=== PATIENT | female | born 1995 | race Caucasian/White ===

== ENCOUNTER → 2019-09-12 | Outpatient (CLI) | payer OTHER | END | disposition home or self-care (01) | LOC: LAB EV 16:20 → LAB SHORT 16:20 | DX: R07.9 Chest pain, unspecified (principal) | CPT/HCPCS: 84484 ==

== ENCOUNTER → 2020-01-22 | Outpatient (CLI) | payer OTHER | LOC: LAB SHORT 17:54 → LAB 17:54 | DX: Z36.85 Encounter for antenatal screening for Streptococcus B (principal); Z3A.35 35 weeks gestation of pregnancy | CPT/HCPCS: 87081; 87653 ==

== ENCOUNTER 2020-02-17 09:15 | Inpatient (IN) | payer OTHER ==
[~2020-02-17] VITALS: Ht 157.5 cm; Wt 58.6 kg
[2020-02-17 09:50] LABS: BASOPHILS ABSOLUTE AUTO 0.13 K/mm3 (0.00-0.23); BASOPHILS PERCENT AUTO 1 % (0-2); EOSINOPHILS ABSOLUTE AUTO 0.38 K/mm3 (0.00-0.68); EOSINOPHILS PERCENT AUTO 2 % (0-6); Hematocrit 35.8 % (33.0-51.0); Hemoglobin 11.7 g/dL (11.5-16.0); IMMATURE GRAN ABSOLUTE AUTO 0.66 K/mm3 (0.00-0.10); IMMATURE GRAN PERCENT AUTO 3 % (0-1); LYMPHOCYTES ABSOLUTE AUTO 2.29 K/mm3 (0.84-5.20); LYMPHOCYTES PERCENT AUTO 10 % (21-46); MONOCYTES ABSOLUTE AUTO 2.04 K/mm3 (0.16-1.47); MONOCYTES PERCENT AUTO 9 % (4-13); Mean Corpuscular HGB 29.8 pg (26.0-34.0); Mean Corpuscular HGB Conc 32.7 g/dL (31.5-36.5); Mean Corpuscular Volume 91 fL (80-100); Mean Platelet Volume 10.8 fL (9.1-12.4); NEUTROPHILS ABSOLUTE AUTO 16.73 K/mm3 (1.96-9.15); NEUTROPHILS PERCENT AUTO 75 % (41-73); Platelet Count 328 K/mm3 (150-400); RDW Coefficient Variation 13.3 % (11.7-14.2); RDW Standard Deviation 43.9 fL (35.1-46.3); Red Blood Cell Count 3.93 M/mm3 (3.80-5.20); White Blood Cell Count 22.23 K/mm3 (4.00-11.30)
[2020-02-17] MEDS ORDERED: BUSP5 PO (10:30)
--- NOTE | 2020-02-17 12:40 | NUR ---
LABS DRAWN OFF IV SITE PER PROTOCOL
[2020-02-17 18:22] LABS: PCO2 Cord - Arterial 67.6 mmHg (40-50); pH Cord - Arterial 7.14 (7.28-7.35)
[2020-02-17 18:23] LABS: PCO2 Cord - Venous 41.6 mmHg (40-50); PO2 Cord - Arterial < 13 mmHg (16-20); PO2 Cord - Venous 40.7 mmHg (28-32); pH Umbilical Cord - Venous 7.26 (7.26-7.35)
[2020-02-18 05:38] LABS: Hematocrit 34.3 % (33.0-51.0); Hemoglobin 11.2 g/dL (11.5-16.0); Mean Corpuscular HGB 29.6 pg (26.0-34.0); Mean Corpuscular HGB Conc 32.7 g/dL (31.5-36.5); Mean Corpuscular Volume 91 fL (80-100); Platelet Count 303 K/mm3 (150-400); RDW Coefficient Variation 13.4 % (11.7-14.2); RDW Standard Deviation 44.2 fL (35.1-46.3); Red Blood Cell Count 3.79 M/mm3 (3.80-5.20); White Blood Cell Count 29.12 K/mm3 (4.00-11.30)
--- NOTE | 2020-02-18 14:18 | NUR ---
DR MOCK CALLED AND WANTS TO WORK PATIENT IN FOR TUBAL TOMORROW. PLAN TO CANCEL DISCHARGE ORDER AND DO TUBAL. NO OTHER ORDERS RECEIVED AT THIS TIME.
--- NOTE | 2020-02-18 15:26 | NUR ---
REPORT RECEIVED FROM MILES LARA. ASSUMED CARE OF PATIENT.
--- NOTE | 2020-02-19 08:29 | NUR ---
PT WEIGHT 02/19/20 @ 0830 IS 58.6 kg
--- NOTE | 2020-02-19 08:54 | NUR ---
PT TO DAY SURGERY FOR TUBAL
--- NOTE | 2020-02-19 09:00 | NUR ---
PT TRANSPORTED TO [facility]. AGREES WITH PLANNED SURGERY. LUNG SOUNDS CLEAR.
--- NOTE | 2020-02-19 11:36 | NUR ---
REPORT FROM MOOK IN PACU @ 1120. PT ARRIVED TO FLOOR AT 1133, PAIN 11/09.
--- NOTE | 2020-02-19 12:27 | NUR ---
PT UP TO VOID. GERDA WELL.
[2020-02-19] MEDS ORDERED: PRENATAL TABLE1 EAC2 PO (13:40)
[2020-02-19] MEDS ORDERED: IBUP800 PO (13:40)
[2020-02-19] MEDS ORDERED: Percocet 5-3251 EACH PO (13:40)
--- NOTE | 2020-02-19 14:20 | NUR ---
ALL DC TEACHING DONE. CALL TO PT REPORTS FEELING FULL AND UNABLE TO VOID FULL AMOUNT. BLADDER SCAN AT [facility], [place] WITH AMOUNT, [place] FOR DC. REPORTS PROABLY RELATED TO GENERAL. PT DOING POST APPT WITH MILES MERRITT. THEN WILL DC HOME. MEDICATED WITH 2 PERCOCET.
--- NOTE | 2020-02-19 14:48 | NUR ---
PT DC'D HOME WITH AND NB.
== END 2020-02-19 14:48 | disposition home or self-care (01) | DRG 798 ==
LOC: BC 09:15 → OBS 09:15 → BC 09:28
PROVIDERS: ADMIT Obstetrics & Gynecology
PROC: 10E0XZZ Delivery of Products of Conception, External Approach (ICD-10-PCS; principal; 2020-02-17)
PROC: 0UT70ZZ Resection of Bilateral Fallopian Tubes, Open Approach (ICD-10-PCS; 2020-02-19)
DX: O42.02 Full-term premature rupture of membranes, onset of labor within 24 hours of rupture (principal); Z37.0 Single live birth; O43.113 Circumvallate placenta, third trimester; O69.1XX0 Labor and delivery complicated by cord around neck, with compression, not applicable or unspecified; O69.3XX0 Labor and delivery complicated by short cord, not applicable or unspecified; O77.0 Labor and delivery complicated by meconium in amniotic fluid; O99.344 Other mental disorders complicating childbirth; F32.9 Major depressive disorder, single episode, unspecified; Z3A.39 39 weeks gestation of pregnancy; Z30.2 Encounter for sterilization
CPT/HCPCS: 36415; 51702; 82803; 85025; 85027; 86850; 86900; 86901; 88302; A9270; J0330; J0690; J1100; J1170; J1885; J2001; J2210; J2250; J2405; J2590; J2704; J2765; J3010; J7120; U0003

== ENCOUNTER 2020-03-08 02:13 | Emergency (ER) | payer OTHER ==
[~2020-03-08] VITALS: Ht 157.5 cm; Wt 54.4 kg
[~2020-03-08 02:13] MED LIST: BUSP5 PO; IBUP800 PO; PRENATAL TABLE1 EAC2 PO; Percocet 5-3251 EACH PO
[2020-03-08] MEDS ORDERED: Ativan1 MG PO (02:43)
== END 2020-03-08 02:49 | disposition home or self-care (01) ==
LOC: ER 02:13
DX: J02.8 Acute pharyngitis due to other specified organisms (principal); B97.89 Other viral agents as the cause of diseases classified elsewhere; F41.9 Anxiety disorder, unspecified; F17.200 Nicotine dependence, unspecified, uncomplicated; Z79.899 Other long term (current) drug therapy
CPT/HCPCS: 99282

== ENCOUNTER 2021-09-03 20:39 | Emergency (ER) | payer OTHER ==
[~2021-09-03] VITALS: Ht 157.5 cm; Wt 48.1 kg
[~2021-09-03 20:39] MED LIST changes: +Ativan1 MG PO
[2021-09-03 22:26] LABS: BASOPHILS ABSOLUTE AUTO 0.03 K/mm3 (0.00-0.23); BASOPHILS PERCENT AUTO 0 % (0-2); EOSINOPHILS ABSOLUTE AUTO 0.26 K/mm3 (0.00-0.68); EOSINOPHILS PERCENT AUTO 3 % (0-6); Hematocrit 37.4 % (33.0-51.0); Hemoglobin 12.5 g/dL (11.5-16.0); IMMATURE GRAN ABSOLUTE AUTO 0.01 K/mm3 (0.00-0.10); IMMATURE GRAN PERCENT AUTO 0 % (0-1); LYMPHOCYTES ABSOLUTE AUTO 2.34 K/mm3 (0.84-5.20); LYMPHOCYTES PERCENT AUTO 24 % (21-46); MONOCYTES ABSOLUTE AUTO 0.78 K/mm3 (0.16-1.47); MONOCYTES PERCENT AUTO 8 % (4-13); Mean Corpuscular HGB 31.1 pg (26.0-34.0); Mean Corpuscular HGB Conc 33.4 g/dL (31.5-36.5); Mean Corpuscular Volume 93 fL (80-100); Mean Platelet Volume 11.2 fL (9.1-12.4); NEUTROPHILS PERCENT AUTO 65 % (41-73); Platelet Count 189 K/mm3 (150-400); RDW Coefficient Variation 12.2 % (11.7-14.2); Red Blood Cell Count 4.02 M/mm3 (3.80-5.20); White Blood Cell Count 9.72 K/mm3 (4.00-11.30)
[2021-09-03 23:03] LABS: Alanine Aminotransfer (ALT/SGP 21 U/L (12-78); Albumin, Blood 4.1 g/dL (3.4-5.0); Albumin/Globulin Ratio 1.4 (0.8-1.8); Alk Phos 39 U/L (50-136); Anion Gap 7 mmol/L (6-16); Aspartate Aminotrans (AST/SGOT 11 U/L (12-37); Bilirubin, Total 0.5 mg/dL (0.1-1.0); Blood Urea Nitrogen 15 mg/dL (8-24); Bun/Creatinine Ratio 25.5 (12.0-20.0); CO2, Blood 25 mmol/L (21-32); Calcium, Blood 8.8 mg/dL (8.5-10.1); Chloride, Blood 109 mmol/L (98-108); Creatinine, Blood 0.59 mg/dL (0.40-1.00); Globulin, Blood 2.9 g/dL (2.2-4.0); Glomerular Filtration Rate >60 (60-); Glucose, Blood 88 mg/dL (70-99); Potassium, Blood 3.8 mmol/L (3.5-5.5); Sodium, Blood 141 mmol/L (136-145)
== END 2021-09-04 00:38 | disposition left against medical advice (07) ==
LOC: ER 20:39
PROVIDERS: Student in an Organized Health Care Education/Training Program
DX: R07.9 Chest pain, unspecified (principal); Z53.21 Procedure and treatment not carried out due to patient leaving prior to being seen by health care provider
CPT/HCPCS: 36415; 71045; 80053; 83690; 85025; 93005; 93010; 99284-25

== ENCOUNTER 2022-10-11 01:58 | Emergency (ER) | payer OTHER ==
[~2022-10-11] VITALS: Ht 157.5 cm; Wt 52.6 kg
[2022-10-11 02:23] VITALS: BP 103/70
== END 2022-10-11 05:00 | disposition home or self-care (01) ==
LOC: ER 01:58
DX: B34.9 Viral infection, unspecified (principal); F17.210 Nicotine dependence, cigarettes, uncomplicated
CPT/HCPCS: 99283

== ENCOUNTER 2022-12-15 21:19 | Emergency (ER) | payer OTHER ==
[~2022-12-15] VITALS: Ht 157.5 cm; Wt 48.1 kg
[2022-12-15 21:28] VITALS: BP 114/70
[2022-12-15 22:46] LABS: Source, Urine Clean Catch
[2022-12-15 22:55] LABS: BASOPHILS ABSOLUTE AUTO 0.02 K/mm3 (0.00-0.23); BASOPHILS PERCENT AUTO 0 % (0-2); EOSINOPHILS ABSOLUTE AUTO 0.04 K/mm3 (0.00-0.68); EOSINOPHILS PERCENT AUTO 1 % (0-6); Hematocrit 35.9 % (33.0-51.0); Hemoglobin 12.4 g/dL (11.5-16.0); IMMATURE GRAN ABSOLUTE AUTO 0.02 K/mm3 (0.00-0.10); IMMATURE GRAN PERCENT AUTO 0 % (0-1); LYMPHOCYTES ABSOLUTE AUTO 0.34 K/mm3 (0.84-5.20); LYMPHOCYTES PERCENT AUTO 8 % (21-46); MONOCYTES ABSOLUTE AUTO 0.54 K/mm3 (0.16-1.47); MONOCYTES PERCENT AUTO 12 % (4-13); Mean Corpuscular HGB 31.7 pg (26.0-34.0); Mean Corpuscular HGB Conc 34.5 g/dL (31.5-36.5); Mean Corpuscular Volume 92 fL (80-100); Mean Platelet Volume 11.5 fL (9.1-12.4); NEUTROPHILS ABSOLUTE AUTO 3.55 K/mm3 (1.96-9.15); NEUTROPHILS PERCENT AUTO 79 % (41-73); Platelet Count 112 K/mm3 (150-400); RDW Coefficient Variation 12.1 % (11.7-14.2); RDW Standard Deviation 40.8 fL (35.1-46.3); Red Blood Cell Count 3.91 M/mm3 (3.80-5.20); White Blood Cell Count 4.51 K/mm3 (4.00-11.30)
[2022-12-15 23:12] LABS: Albumin, Blood 3.8 g/dL (3.4-5.0); Albumin/Globulin Ratio 1.3 (0.8-1.8); Bilirubin, Total 0.4 mg/dL (0.1-1.0); Bun/Creatinine Ratio 13.1 (12.0-20.0); Calcium, Blood 8.3 mg/dL (8.5-10.1); Creatinine, Blood 0.69 mg/dL (0.40-1.00); Globulin, Blood 2.9 g/dL (2.2-4.0); Potassium, Blood 3.7 mmol/L (3.5-5.5); Total Protein, Blood 6.7 g/dL (6.4-8.2)
[2022-12-15 23:33] LABS: Appearance, Urine Clear (Clear); Bilirubin, Urine Neg (Neg); Blood, Urine Neg (Neg); Color, Urine Yellow (P-Yellow); Glucose Qualitative, Urine Neg (Neg); Ketones, Urine 4+ (Neg); Leukocyte Esterase, Urine 1+ (Neg); Nitrite, Urine Neg (Neg); Protein, Urine 1+ (Neg); Urobilinogen, Urine 1+ (Normal)
[2022-12-16] LABS: Bacteria Few /hpf; Red Blood Cells, Urine 0-2 /hpf (0-2); Squamous Epithelial Cells Mod /hpf (Few); White Blood Cells, Urine 0-2 /hpf (0-5)
[2022-12-16] MEDS ORDERED: ONDA4 PO (00:17)
[2022-12-16] MEDS ORDERED: LIDOCAINE1 EACH TOP (00:17)
[2022-12-16] MEDS ORDERED: Robaxin750 MG PO (00:17)
== END 2022-12-16 00:27 | disposition home or self-care (01) ==
LOC: ER 21:19
PROVIDERS: Emergency Medicine; Student in an Organized Health Care Education/Training Program
DX: M54.50 Low back pain, unspecified (principal); F17.210 Nicotine dependence, cigarettes, uncomplicated
CPT/HCPCS: 74177; 80053; 81001; 84703; 85025; 87086; 96374-59; 96375; 99284-25; A9270; J1885; J2405; J7030; Q9967

== ENCOUNTER → 2023-05-21 | Outpatient (CLI) | payer OTHER ==
[~2023-05-21] MED LIST changes: +LIDOCAINE1 EACH TOP; +ONDA4 PO; +Robaxin750 MG PO
[2023-05-24 21:38] LABS: APTIMA MEDIA TYPE Unisex Swab; C. TRACHOMATIS BY TMA Negative (Negative); N. GONORRHOEAE BY TMA Negative (Negative); SPECIMEN SOURCE CERVIX
== END ==
LOC: LAB SHORT 15:59 → LAB 15:59
PROVIDERS: Obstetrics & Gynecology
DX: Z01.419 Encounter for gynecological examination (general) (routine) without abnormal findings (principal); Z11.3 Encounter for screening for infections with a predominantly sexual mode of transmission
CPT/HCPCS: 87491; 87591

== ENCOUNTER → 2023-06-22 | Outpatient (CLI) | payer OTHER | END | disposition home or self-care (01) | LOC: LAB SHORT 13:37 → LAB 13:37 | DX: D06.0 Carcinoma in situ of endocervix (principal) | CPT/HCPCS: 88305 ==

== ENCOUNTER → 2023-08-26 | Outpatient (CLI) | payer OTHER ==
[2023-08-26 20:11] LABS: Bacterial Vaginosis PCR Negative (NEGATIVE); Candida Group, PCR NOT DETECTED (NOT DETECT); Candida glabrata-krusei, PCR NOT DETECTED (NOT DETECT)
== END | disposition home or self-care (01) ==
LOC: LAB SHORT 16:07 → LAB 16:07
PROVIDERS: Obstetrics & Gynecology
DX: N76.0 Acute vaginitis (principal)
CPT/HCPCS: 87481; 87661; 87801

== ENCOUNTER → 2024-02-28 | Outpatient (CLI) | payer OTHER ==
[2024-02-28 17:05] LABS: Bacterial Vaginosis PCR Negative (NEGATIVE); Candida glabrata-krusei, PCR NOT DETECTED (NOT DETECT)
[2024-02-28 17:56] LABS: Candida Group, PCR DETECTED (NOT DETECT)
[2024-03-02 10:55] LABS: APTIMA MEDIA TYPE Unisex Swab; C. TRACHOMATIS BY TMA Negative (Negative); N. GONORRHOEAE BY TMA Negative (Negative); SPECIMEN SOURCE Vaginal
== END ==
LOC: LAB SHORT 12:29 → LAB 12:29
PROVIDERS: Obstetrics & Gynecology
DX: N89.8 Other specified noninflammatory disorders of vagina (principal); Z11.3 Encounter for screening for infections with a predominantly sexual mode of transmission; Z98.890 Other specified postprocedural states
CPT/HCPCS: 87481; 87491; 87591; 87661; 87801